=== PATIENT | female | born 1955 | race Caucasian/White ===

== ENCOUNTER 2018-01-06 13:52 | Inpatient (IN) | payer SELFPAY ==
[~2018-01-06] VITALS: Ht 160 cm; Wt 74.4 kg
--- NOTE | 2018-01-06 13:52 | NUR ---
PT BIBA ALS TO BED 10
[2018-01-06 13:55] VITALS: BP 135/55
--- NOTE | 2018-01-06 14:11 | NUR ---
DR WOLF EVALUATING AT BEDSIDE
--- NOTE | 2018-01-06 14:12 | NUR ---
62Y/F BIBA FOR [employer] AT WORK; PER PATIENT, REMEMBERED FEELING WEAK AND DIZZY AND PASSED OUT/ASSISTED TO THE GROUND. NO INJURY. PER PATIENT,DIZZINESS/WEAKNESS RESOLVED,JUST NAUSEATED. EKG DONE FIELD.BS 102. PT IS AAOX4; EVEN AND UNLABORED BREATHING; SKIN INTACT; +CMS; GCS 15; BED DOWN; BED ARAIL UP X 1; ER MD AWARE AND NOTIFIED OF PT STATUS. HX: HYSTERECTOMY. DENIES MEDS. STRESS AT HOME
--- NOTE | 2018-01-06 14:16 | NUR ---
[facility] in [facility] - 01/06/18 at 1430 by MEDFL Patient being evaluated by physician at bedside.
[2018-01-06] MEDS ORDERED: NACL 0.9% 1,000 ML IV SCH (14:34)
--- NOTE | 2018-01-06 14:41 | NUR ---
PT TAKEN TO CT
--- NOTE | 2018-01-06 14:52 | NUR ---
PT BACK FROM CT
[2018-01-06 15:16] LABS: BASOPHILS % (AUTO) 0.5 % (0.0-2.0); EOSINOPHILS % (AUTO) 0.3 % (0.0-4.0); HEMATOCRIT 43.6 % (36-48); HEMOGLOBIN 14.8 g/dL (12.0-16.0); LYMPHOCYTES # (AUTO) 1.4 K/uL (2.5-16.5); LYMPHOCYTES % (AUTO) 19.7 % (20.5-51.1); MEAN CORPUSCULAR HEMOGLOBIN 29 pg (27-31); MEAN CORPUSCULAR HGB CONC 34 g/dL (33-37); MEAN CORPUSCULAR VOLUME 86.4 fL (80-94); MONOCYTES # (AUTO) 0.5 K/uL (0.8-1.0); MONOCYTES % (AUTO) 6.3 % (1.7-9.3); NEUTROPHILS # (AUTO) 5.4 K/uL (1.8-7.7); NEUTROPHILS % (AUTO) 73.2 % (42.2-75.2); PLATELET COUNT (AUTO) 164 K/uL (140-450); RED BLOOD CELL COUNT(AUTO) 5.05 MIL/uL (4.20-5.40); RED CELL DISTRIBUTION WIDTH 13.6 % (11.6-13.7); WHITE BLOOD COUNT (AUTO) 7.3 K/uL (4.8-10.8)
[2018-01-06] MEDS ORDERED: DEXT 5% / NACL 0.45% 1,000 ML IV SCH (15:16)
[2018-01-06 15:20] LABS: APPEARANCE,URINE CLEAR (CLEAR); BILIRUBIN,URINE NEGATIVE (NEGATIVE); BLOOD, URINE NEGATIVE (NEGATIVE); COLOR,URINE YELLOW (YELLOW); LEUKOCYTE ESTERASE ,URINE NEGATIVE (NEGATIVE); NITRITE, URINE NEGATIVE (NEGATIVE); UGLUCOSE NEGATIVE (NEGATIVE)
[2018-01-06] MEDS ORDERED: DOCUSATE SODIUM 100 MG GELCAP PO PRN (15:20)
[2018-01-06] MEDS ORDERED: LORazepam 2 MG/ML VIAL IM/IVP PRN (15:20)
[2018-01-06] MEDS ORDERED: MECLIZINE 25 MG TAB PO PRN (15:20)
[2018-01-06] MEDS ORDERED: HYDROcodone/APAP 5/325 MG 1 TAB TAB PO PRN (15:20)
[2018-01-06] MEDS ORDERED: ONDANSETRON 4 MG/2 ML VIAL IM/IVP PRN (15:20)
[2018-01-06] MEDS ORDERED: MORPHINE SULFATE 2 MG/ML SYR IVP PRN (15:20)
[2018-01-06] MEDS ORDERED: ACETAMINOPHEN 325 MG TAB PO PRN (15:20)
[2018-01-06 15:24] LABS: ANION GAP 12.1 (8-16); CARBON DIOXIDE 28.5 mmol/L (21-32); CHLORIDE 107 mmol/L (98-107); CREATININE 0.6 mg/dL (0.6-1.3); GFR ARICAN-AMERICAN 130 mL/min (>90); GLUCOSE 114 mg/dL (74-106); POTASSIUM 3.6 mmol/L (3.5-5.1); SODIUM SERUM 144 mmol/L (136-145); UREA NITROGEN, BLOOD 11 mg/dL (7-18)
[2018-01-06 15:29] LABS: BARBITURATE, URINE NEG. ng/ml (NEG <=200); BENZODIAZEPINE, URINE NEG. ng/mL (NEG <=200); CANNABINOID, URINE NEG. ng/mL (NEG <=50); COCAINE, URINE NEG. ng/mL (NEG <=300); OPIATE, URINE NEG. ng/mL (NEG <=2000); PHENCYCLIDINE SCREEN,URINE NEG. ng/mL (NEG <=25)
[2018-01-06 15:31] LABS: ALBUMIN 3.5 g/dL (3.4-5.0); AMYLASE 52 U/L (25-115); ASPARTATE AMINOTRANSFERASE 11 U/L (15-37); LIPASE 112 U/L (73-393); TOTAL BILIRUBIN 0.3 mg/dL (0.0-1.0)
[2018-01-06 15:43] LABS: PROTHROMBIN TIME 10.4 secs (10.8-13.4)
--- NOTE | 2018-01-06 16:02 | NUR ---
PT TAKEN TO FLOOR BY HOUSTON HAWTHORNE AND EMT FELICIA
--- NOTE | 2018-01-06 16:02 | NUR ---
Patient will be admitted to care of . Admited to TELE FLOOR. Will go to room 119-A. Belongings list completed. Report to HOUSTON FRANCIS.
--- NOTE | 2018-01-06 16:18 | NUR ---
ADMITTED PT FROM ER VIA [facility]UC[facility]. RECEIVED REPORT FROM ER NURSE. PT ABLE TO TRANSFER TO BED WITH STEADY GAIT, DENIES ANY PAIN OR DISCOMFORT. NO DIZZINESS. ABLE TO VERBALIZE NEEDS. PT ORIENTED TO ROOM & UNIT. VERBALIZED UNDERSTANDING. FALL PRECAUTIONS INITIATED. CALL LIGHT PLACED WITHIN REACH. WILL CONTINUE TO MONITOR.
[2018-01-06 16:30] VITALS: BP 122/65
[2018-01-06 16:46] LABS: MAGNESIUM 2.1 mg/dL (1.8-2.4); PHOSPHORUS 3.9 mg/dL (2.5-4.9); THYROID STIMULATING HORMONE 0.4 uIU/mL (0.34-3.74)
[2018-01-06] MEDS: NACL 0.9% 1,000 ML IV SCH (17:16)
--- NOTE | 2018-01-06 17:30 | NUR ---
PT REQUESTED TO WALK TO TOILET. STANDBY ASSIST PROVIDED. PT WITH STEADY GAIT. VOIDED X1 & AMBULATED BACK TO BED WITHOUT DIFFICULTY. DENIES ANY PAIN OR DISCOMFORT.
[2018-01-06 17:57] VITALS: BP 117/64
[2018-01-06 18:02] VITALS: BP 132/77
[2018-01-06 18:06] VITALS: BP 137/79
--- NOTE | 2018-01-06 18:10 | NUR ---
ORTHOSTATIC BP MONITORING COMPLETED. PT DENIES ANY DIZZINESS WITH POSITION CHANGES. NO C/O PAIN OR DISCOMFORT. PT WENT BACK TO BED, CALL LIGHT PLACED WITHIN REACH. WILL CONTINUE TO MONITOR.
--- NOTE | 2018-01-06 19:19 | NUR ---
REPORT GIVEN TO COAT ROOM ATTENDANT NURSE. PT ASLEEP IN BED, RESPIRATIONS EVEN & UNLABORED. FALL PRECAUTIONS IN PLACE.
--- NOTE | 2018-01-06 19:20 | NUR ---
REPORT RECEIVED FROM AM NURSE AT BEDSIDE. PT IN STABLE CONDITION. AAOX4. INTRODUCED SELF AND BOARD UPDATED. IV SITE PATENT AND INTACT. SKIN WARM, DRY, AND INTACT WITH NO OPEN WOUNDS. BED LOCKED IN LOW POSITION. CALL MERCADO WITHIN REACH.
[2018-01-06 20:00] VITALS: BP 116/67
--- NOTE | 2018-01-06 20:00 | NUR ---
FAMILY AT BEDSIDE. UPDATED FAMILY ON TESTS THAT WERE DONE. FAMILY VERBALIZED UNDERSTANDING.
--- NOTE | 2018-01-06 22:30 | NUR ---
PT SLEEPING COMFORTABLY AFTER IV PUMP WAS FIXED OF HIGH PRESSURE ALARM. NO S/S OF DISTRESS.
[2018-01-07] VITALS: BP 109/56
--- NOTE | 2018-01-07 03:45 | NUR ---
PT SLEEPING COMFORTABLY IN BED. NO S/S OF DISTRESS NOTED. WILL CONTINUE TO MONITOR.
[2018-01-07 04:00] VITALS: BP 102/61
[2018-01-07] MEDS: NACL 0.9% 1,000 ML IV SCH (04:35)
--- NOTE | 2018-01-07 05:30 | NUR ---
PT NOTED THAT PILLOW NEAR IV SITE WAS WET. IV WAS ACCIDENTALLY PULLED OUT. NEW IV INSERTED.
--- NOTE | 2018-01-07 05:45 | NUR ---
NEW IV INSERT. RIGHT FA 22G. 1 ATTEMPT. PT TOLERATED WELL. OTHER IV DC. CANNULA INTACT.
[2018-01-07 06:28] LABS: T4 (THYROXINE) 6.9 ug/dL (4.5-12.0)
[2018-01-07 06:56] LABS: BASOPHILS % (AUTO) 0.6 % (0.0-2.0); EOSINOPHILS # (AUTO) 0.1 K/uL (0-0.4); EOSINOPHILS % (AUTO) 1.3 % (0.0-4.0); HEMOGLOBIN 14.3 g/dL (12.0-16.0); LYMPHOCYTES # (AUTO) 1.7 K/uL (2.5-16.5); LYMPHOCYTES % (AUTO) 29.1 % (20.5-51.1); MEAN CORPUSCULAR HEMOGLOBIN 30 pg (27-31); MEAN CORPUSCULAR HGB CONC 34 g/dL (33-37); MEAN CORPUSCULAR VOLUME 87.2 fL (80-94); MONOCYTES # (AUTO) 0.5 K/uL (0.8-1.0); MONOCYTES % (AUTO) 8.1 % (1.7-9.3); NEUTROPHILS # (AUTO) 3.6 K/uL (1.8-7.7); NEUTROPHILS % (AUTO) 60.9 % (42.2-75.2); PLATELET COUNT (AUTO) 147 K/uL (140-450); RED BLOOD CELL COUNT(AUTO) 4.81 MIL/uL (4.20-5.40)
[2018-01-07 07:06] LABS: ANION GAP 9.2 (8-16); CARBON DIOXIDE 27.6 mmol/L (21-32); CREATININE 0.5 mg/dL (0.6-1.3); POTASSIUM 3.8 mmol/L (3.5-5.1)
[2018-01-07 07:19] LABS: MAGNESIUM 1.9 mg/dL (1.8-2.4); PHOSPHORUS 3.4 mg/dL (2.5-4.9)
[2018-01-07 07:23] LABS: CHOL/HDL RATIO 3.4 (1-4.5)
--- NOTE | 2018-01-07 07:35 | NUR ---
REPORT GIVEN TO AM NURSE. PT IN STABLE CONDITION.
[2018-01-07 08:00] VITALS: BP 119/62
[2018-01-07] MEDS ORDERED: LORA-476 PO (09:19)
--- NOTE | 2018-01-07 09:37 | NUR ---
RECEIVED REPORT FROM [facility]OMOTION SPECIALIST RN. PT A/O X4, VERBALIZE NEEDS. SKIN DRY AND WARM TO TOUCH. SKIN INTACT. LUNGS CLEAR ON AUSCULTATION. DENIES SOB, DIFFICULTY BREATHING. CHEST PAIN AT THIS TIME. S1S2 HEARD. ABDOMEN SOFT ROUND AND NON-TENDER. ACTIVE BOWEL SOUND. PERIPHERAL LINE ON RIGHT HAND 22G. NS RUNNING AT 80 ML/HR. KEPT HOB ELEVATED, BED IN LOW POSITION LOCKED. CALL LIGHT WITHIN REACH. WILL CONTINUE TO MONITOR.
--- NOTE | 2018-01-07 09:47 | NUR ---
PATIENT HAS BEEN SCREENED AND CATEGORIZED MODERATE NUTRITION RISK. PATIENT WILL BE SEEN WITHIN 3-5 DAYS OF ADMISSION. 01/09/18 01/11/[address]
[2018-01-07] MEDS ORDERED: BUS5 PO (10:25)
--- NOTE | 2018-01-07 10:50 | NUR ---
NO CHANGE IN LOC. WILL CONTINUE TO MONITOR.
[2018-01-07 12:00] VITALS: BP 129/63
--- NOTE | 2018-01-07 12:38 | NUR ---
PT REFUSED TO BE ON IVF AND TELE MONITOR. SAID SAID DOCTOR IS GOING TO DISCHARGE PT. NURSE SAID STILL WE NEED ORDER TO SET YOU FREE FROM MONITOR AND IV SITE AND FLUID. STILL PT SAID SHE DOES NOT WANT IVF. DC'D IV FLUID PER PT REQUEST. REASSURE PT THAT SHE NEEDS TO BE ON MONITOR. UNTIL SHE IS HERE. PT AGREES TO BE ON MONITOR.
[2018-01-07 13:42] VITALS: BP 129/69
--- NOTE | 2018-01-07 14:28 | NUR ---
Patient discharged with v/s stable. Written and verbal after care instructions given and explained. Patient alert, oriented and verbalized understanding of instructions. Ambulatory with steady gait. Accompanied by family. All questions addressed prior to discharge. ID band, IV cannula removed, secured with dressing. Patient advised to follow up with PMD. Made aware about appointment with PCP. Verbalized understanding. Rx of Buspar given. Patient educated on indication of medication including possible reaction and side effects. Opportunity to ask questions provided and answered. Provided needed documents. Belongings with patient.
== END 2018-01-07 14:25 | disposition home or self-care (01) | DRG 312 ==
LOC: MED 13:52 → MTU 15:22
PROVIDERS: ADMIT General Practice; ATTEND General Practice
DX: R55 Syncope and collapse (principal); E78.5 Hyperlipidemia, unspecified; F32.9 Major depressive disorder, single episode, unspecified; F41.9 Anxiety disorder, unspecified; E66.3 Overweight; E87.8 Other disorders of electrolyte and fluid balance, not elsewhere classified; F17.210 Nicotine dependence, cigarettes, uncomplicated; R73.9 Hyperglycemia, unspecified; Z90.710 Acquired absence of both cervix and uterus; Z68.29 Body mass index [BMI] 29.0-29.9, adult; Z80.8 Family history of malignant neoplasm of other organs or systems; Z82.49 Family history of ischemic heart disease and other diseases of the circulatory system; Z71.3 Dietary counseling and surveillance; Z71.6 Tobacco abuse counseling
CPT/HCPCS: 36415; 70450; 71045; 80048; 80053; 80305; 81003; 82150; 82550; 82948; 83036; 83690; 83735; 83880; 84100; 84134; 84436; 84443; 84484; 85025; 85610; 85730; 87081; 93005; 93880; 96360; 96361; 97161-GP; 97535; 99285; G0482; J7030; Q0092